=== PATIENT | male | born 1955 | race African-American/Black ===

== ENCOUNTER 2020-03-17 00:03 | Emergency (ER) | payer MEDICAID ==
[~2020-03-17] VITALS: Ht 180.3 cm; Wt 92.3 kg
[2020-03-17 00:06] VITALS: BP 151/92
[2020-03-17] MEDS ORDERED: DIAZEPAM 5 MG TABLET ONE (00:21)
[2020-03-17] MEDS ORDERED: OXYcodone/APAP 5/325MG TABLET ONE (00:21)
[2020-03-17] MEDS ORDERED: KETOROLAC 30 MG/1 ML ONE (00:21)
[2020-03-17] MEDS ORDERED: OXYcodone/APAP 5/325MG TABLET PO ONE (00:30)
[2020-03-17] MEDS ORDERED: DIAZEPAM 5 MG TABLET PO ONE (00:30)
[2020-03-17] MEDS ORDERED: KETOROLAC 30 MG/1 ML IM ONE (00:30)
--- NOTE | 2020-03-17 00:46 | NUR ---
PT MEDICATED FOR PAIN PER AUG. PT RESTING COMFORTABLY IN [facility] AT THIS TIME;
--- NOTE | 2020-03-17 01:43 | NUR ---
PT D/C WITH D/C SUMMARY AND SCRIPTS. ALL QUESTIONS ANSWERED. PT AMBULATES TO REGISTRATION DESK WITH STEADY GAIT AND TAXI VOUCHER FOR SAFE D/C BACK TO HOTEL/CASINO. PT DENIES ANY OTHER NEEDS PERTAINING TO THIS VISIT.
== END 2020-03-17 01:49 | disposition home or self-care (01) ==
LOC: ED 01:15
DX: S39.012A Strain of muscle, fascia and tendon of lower back, initial encounter (principal); G89.29 Other chronic pain; J44.9 Chronic obstructive pulmonary disease, unspecified; W18.30XA Fall on same level, unspecified, initial encounter; Y93.89 Activity, other specified; Y92.89 Other specified places as the place of occurrence of the external cause; Y99.8 Other external cause status
CPT/HCPCS: 72110; 96372; 99283; J1885